=== PATIENT | female | born 1955 | race Caucasian/White ===

== ENCOUNTER 2018-09-07 12:33 | Emergency (ER) | payer OTHER ==
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
--- NOTE | 2018-09-07 14:12 | RAD REPORT ---
EXAM DESCRIPTION: RAD - Foot Left 3 View - 09/07/2018 2:01 pm CLINICAL HISTORY: foot pain, swelling COMPARISON: No comparisons FINDINGS: Small bony avulsion, age undetermined is noted along the dorsal aspect of the talus. Soft tissue swelling is seen along the forefoot. A prominent plantar calcaneal spur.
--- OUTSIDE RECORDS SUMMARY | 2018-09-07 14:48 | XMS REPORT | Clinical Summary ---
:1955 Author Organization [facility] Address [address] [place] [address] Care Team Providers Name Role Phone Antonino Saldivar MD Primary Care Provider Allergies No Known Allergies Medications Medication Sig Dispensed Refills Start Date End Date Status atorvastatin (LIPITOR) 40 MG tablet 0 10/30/2016 Active esomeprazole (NexIUM) 40 MG capsule 0 10/30/2016 Active escitalopram (LEXAPRO) 10 MG tablet 0 09/11/2016 Active letrozole (FEMARA) 2.5 mg chemo 0 08/21/2016 Active tablet NIFEdipine CC (ADALAT CC) 90 MG 24 0 10/30/2016 Active hr tablet Active Problems Problem Noted Date Primary osteoarthritis of right knee 11/03/2016 Internal derangement of right knee 11/03/2016 Chronic pain of both knees 11/03/2016 Family History Medical History Relation Name Comments Aortic aneurysm Father Cancer Mother Relation Name Status Comments Father Mother Social History Tobacco Use Types Packs/Day Years Used Date Light Tobacco Smoker Smokeless Tobacco: Never Used Alcohol Use Drinks/Week oz/Week Comments No Sex Assigned at Date Recorded Not on file Job Start Date Occupation Industry Not on file Not on file Not on file Travel History Travel Start Travel End No recent travel history available. Last Filed Vital Signs Not on file Plan of Treatment Health Maintenance Due Date Last Done Comments BREAST CANCER SCREENING 2006 COLON CANCER SCREENING 2006 SHINGLES VACCINES (#1) 2006 INFLUENZA VACCINE 11/08/2018 Results Not on fileafter 09/06/2017 Advance Directives Patient has advance care planning documents on file. For more information, please contact:Leonel [id number] [place] [address]
--- OUTSIDE RECORDS SUMMARY | 2018-09-07 14:48 | XMS REPORT | Continuity of Care Document ---
:1955 Author Organization Interface Problems Problem Status Onset Classification Date Comments Source Date Reported Malignant neoplasm of 09/06/2018 [facility] upper-inner quadrant 018 [facility] breast [place] C50.919 - MALIGNANT Active OPID NEOPLASM OF UNSP SIT 016 [facility] [address], RIGHT BREAST Active CANCER 016 [facility] [id number] N63 RIGHT BREAST Active MASS 015 [facility] Pure Active Diagnosis 03/23/2017 Comp Heart hypercholesterolemia Care Aneurysm of carotid Active Diagnosis 03/23/2017 Comp [facility] artery Care Benign essential Active Problem 03/23/2017 Comp Heart hypertension Care Heart murmur Active Diagnosis 03/23/2017 [facility] Abnormal EKG Active Problem 03/23/2017 [facility] Acid reflux [facility] BP+ - Hypertension Active Problem 09/06/2018 [place] Breast Active Problem 09/06/2018 right OPI mass<sup>1</sup> [facility] Hypercholesterolemia Resolved Problem 09/06/[address] [place] Medications Medication Details Route Status Patient Ordering Order Source Instructions Provider Date Morphine 2 mg, 1 mL, Inactive Route: IVP, 2015 [facility] Drug form: City INJ, Q5Min, Dosing Weight 81.818, kg, PRN Pain Score 4-6, Start date: 04/20/15 9:24:00, Duration: 5 doses or times, Stop date: Limited # of timesNotes: (Same as:MORPhine Sulfate) Naloxone 0.04 mg, 0.1 Inactive mL, Route: 2015 [facility] IVP, Drug [facility] form: INJ, Q2MIN, Dosing Weight 81.818, kg, PRN Narcotic Reversal, Start date: 04/20/15 9:24:00, Duration: 8 doses or times, Stop date: Limited # of timesNotes: Same as Narcan Flumazenil 0.2 mg, 2 mL, Inactive Route: IVP2015 [facility] Drug form: [facility] INJ, PRN, Dosing Weight 81.818, kg, PRN Benzodiazepine Reversal, Initial dose, Start date: 04/20/15 9:24:00, Duration: 30 day, Stop date: 05/20/15 9:23:00Notes: (Same as: Romazicon) Ondansetron 4 mg, 2 mL, Inactive Route: IVP2015 [facility] Drug form: [facility] INJ, ONCE, Dosing Weight 81.818, kg, PRN Nausea & Vomiting, Start date: 04/20/15 9:24:00Notes: (Same as: Zofran) MEDICATION WASTE Product Size: 4 mg Product Wasted: __0_ mg bupivacaine 20 mL, Route: Inactive liposome InFILtration(l 2015 [facility] ocal), Drug [place] Form: INJ, ONCALL, Start date: 04/20/15 9:00:00, Duration: 1 doses or times, Stop date: 04/21/15 0:00:00Notes: (Same as: Exparel) NOT FOR IV use Postoperative analgesia: Infiltration (local): Dose is based on surgical site and volume required to cover the area (in general, the maximum total dose is 266 mg). Bunionectomy: 7 mL into the tissues surrounding the osteotomy and 1 mL into the subcutaneous tissue of the surgical site (total dose=8 mL [106 mg]) Hemorrhoidecto my: 30 mL (20 mL vial diluted with 10 mL NS) divided and administered as 6 injections of 5 mL each (total dose=30 mL [266 mg]) lidocaine 1% 0.5 mL, Route: Inactive INTRADERM, 2015 [facility] Dosing Weight [facility] 81.818, kg, ONCALL, Start date: 04/20/15 9:00:00, Duration: 1 doses or times ceFAZolin 2 gm, 100 mL, Inactive Route: IVPB2015 [facility] Drug form: [facility] INJ, PRE OP, Start date: 04/20/15 9:00:00, Duration: 1 doses or times, Stop date: 04/21/15 0:00:00Notes: Same as: Ancef Calcium Chloride 1,000 mL, Inactive 0.0014 MEQ/ML / Rate: 25 2015 [facility] Potassium ml/hr, Infuse [facility] Chloride 0.004 over: 40 hr, MEQ/ML / Sodium Route: IV, Chloride 0.103 Dosing Weight MEQ/ML / Sodium 81.818 kg, Lactate 0.028 Total Volume: MEQ/ML Injectable 1,000, Start Solution date: 04/20/15 8:30:00, Duration: 30 day, Stop date: 05/20/15 8:29:00 Demerol HCl 10 mg, 0.2 mL, Inactive Route: IVP, 2014 [facility] Drug form: [place] INJ, Q5Min, Dosing Weight 81.818, kg, PRN See Nurse's Notes, Start date: 04/06/15 9:11:00, Duration: 5 doses or times, Stop date: Limited # of times, as needed for pain level 3-6Notes: (Same As: Demerol) Dilaudid 0.5 mg, 0.25 Inactive 04/06[facility] mL, Route: IV, 2014 [facility] Drug form: [place] INJ, Q10Min, Dosing Weight 81.818, kg, PRN See Nurse's Notes, Start date: 04/06/15 9:11:00, Duration: 4 doses or times, Stop date: Limited # of times, PRN for pain level 5-10Notes: (Same as: Dilaudid) Atropine 0.2 mg, 0.5 Inactive 04/06[facility] mL, Route: 2014 [facility] IVP Drug [facility] form: INJ, Q5Min, Dosing Weight 81.818, kg, PRN Other -See Comment, as needed; for symptomatic pulse rate Notes: MEDICATION WASTE Product Size: 0.4 mg Product Wasted: __0.2_ mg Naloxone 0.04 mg, 0.1 Inactive 04/06[facility] mL, Route: 2014 [facility] IVP, Drug [facility] form: INJ, Q2MIN, Dosing Weight 81.818, kg, PRN Narcotic Reversal, Start date: 04/06/15 9:11:00, Duration: 8 doses or times, Stop date: Limited # of timesNotes: Same as Narcan Flumazenil 0.2 mg, 2 mL, Inactive Route: IVP2014 [facility] Drug form: [place] INJ, PRN, Dosing Weight 81.818, kg, PRN Benzodiazepine Reversal, Initial dose, Start date: 04/06/15 9:11:00, Duration: 30 day, Stop date: 05/06/15 9:10:00Notes: (Same as: Romazicon) Morphine 2 mg, 1 mL, Inactive Route: IVP2014 [facility] Drug form: [place] INJ, Q5Min, Dosing Weight 81.818, kg, PRN Pain Score 4-6, Start date: 04/06/15 9:11:00, Duration: 5 doses or times, Stop date: Limited # of timesNotes: (Same as:MORPhine Sulfate) Midazolam 1 mg, 1 mL, Inactive Route: IVP2014 [facility] Drug form: [place] INJ, Q5Min, Dosing Weight 81.818, kg, PRN Anxiety, Start date: 04/06/15 9:11:00, Duration: 2 doses or times, Stop date: Limited # of timesNotes: (Same as: Versed) MEDICATION WASTE Product Size: 2 mg Product Wasted: _1__ mg Promethazine 6.25 mg, 0.25 Inactive mL, Route: 2014 [facility] IVPB, ONCE, [facility] Dosing Weight 81.818, kg, PRN Nausea & Vomiting, Start date: 04/06/15 9:11:00Notes: Do not give IV push. (Same as: Phenergan) Ondansetron 4 mg, 2 mL, Inactive Route: IVP2014 [facility] Drug form: [place] INJ, ONCE, Dosing Weight 81.818, kg, PRN Nausea & Vomiting, Start date: 04/06/15 9:11:00Notes: (Same as: Zofran) MEDICATION WASTE Product Size: 4 mg Product Wasted: _0__ mg Glycopyrrolate 0.2 mg, 1 mL, Inactive Route: IVP2014 [facility] Drug form: [place] INJ, Q5Min, Dosing Weight 81.818, kg, PRN Bradycardia, Start date: 04/06/15 9:11:00, Duration: 3 doses or times, Stop date: Limited # of timesNotes: (Same as: Alcides) Diphenhydramine 12.5 mg, 0.25 Inactive mL, Route: 2014 [facility] IVP, Drug [place] form: INJ, PRN, Dosing Weight 81.818, kg, PRN Itching, Start date: 04/06/15 9:11:00, Duration: 30 day, Stop date: 05/06/15 9:10:00Notes: (Same as: Adryl) Labetalol 10 mg, 2 mL, Inactive Route: IVP, 2014 [facility] Drug form: [place] INJ, Q5Min, Dosing Weight 81.818, kg, PRN Elevated BP, Start date: 04/06/15 9:11:00, Duration: 5 doses or times, Stop date: Limited # of timesNotes: (Same as: Normodyne, Trandate) Push over 2 minutes Give bolus over 2-3 minutes. bupivacaine 20 mL, Route: Inactive liposome InFILtration(l 2014 [facility] ocal), [facility] [place] Form: INJ, ONCALL, Start date: 04/06/15 9:00:00, Duration: 1 doses or times, Stop date: 04/07/15 0:00:00Notes: (Same as: Exparel) NOT FOR IV use Postoperative analgesia: Infiltration (local): Dose is based on surgical site and volume required to cover the area (in general, the maximum total dose is 266 mg). Bunionectomy: 7 mL into the tissues surrounding the osteotomy and 1 mL into the subcutaneous tissue of the surgical site (total dose=8 mL [106 mg]) Hemorrhoidecto my: 30 mL (20 mL vial diluted with 10 mL NS) divided and administered as 6 injections of 5 mL each (total dose=30 mL [266 mg]) lidocaine 1% 0.5 mL, Route: Inactive INTRADERM, 2014 [facility] Dosing Weight [facility] 81.818, kg, ONCALL, Start date: 04/06/15 9:00:00, Duration: 1 doses or times ceFAZolin 2 gm, 100 mL, Inactive Route: IVPB, 2014 [facility] Drug form: [place] INJ, PRE OP, Start date: 04/06/15 9:00:00, Duration: 1 doses or times, Stop date: 04/07/15 0:00:00Notes: Same as: Ancef Cefazolin 2 gm, Route: Inactive IVPB, ONCE, 2014 [facility] Dosing Weight [facility] 81.818, kg, Start date: 04/06/15 8:41:00, Stop date: 04/06/15 8:41:00 Calcium Chloride 1,000 mL, Inactive 0.0014 MEQ/ML / Rate: 25 2014 [facility] Potassium ml/hr, Infuse [facility] Chloride 0.004 over: 40 hr, MEQ/ML / Sodium Route: IV, Chloride 0.103 Dosing Weight MEQ/ML / Sodium 81.818 kg, Lactate 0.028 Total Volume: MEQ/ML Injectable 1,000, Start Solution date: 04/06/15 8:41:00, Duration: 30 day, Stop date: 05/06/15 8:40:00 Hydrochlorothiazi =1 tab, PO, Active de Daily, 0 2014 [facility] Refill(s) [facility] Lipitor =1 tab, PO, Active Bedtime, 0 2014 [facility] Refill(s) [facility] Esomeprazole 20 20 mg=1 cap, Active MG Enteric Coated PO, Daily, 0 2014 [facility] Capsule [Nexium] Refill(s) [facility] Nifedipine 10 MG 10 mg=1 cap, Active Oral Capsule PO, Daily, 0 2014 [facility] Refill(s) [facility] letrozole 1 tab(s) orally Active 2.5 mg orally [facility]av[place] Comp once a day [facility] escitalopram 1 tab(s) orally Active 10 mg orally [place] Comp once a day [facility] Nexium 1 cap(s) orally Active 40 mg orally [facility] Comp once a day [facility] atorvastatin 1 tab(s) orally Active 40 mg orally [facility] Comp once a day [facility] metformin 1 tab(s) orally Active 500 mg orally [facility] Comp once a day [facility] nifedipine 1 tab(s) orally Active 90 mg orally [place] Comp once a day [facility] Allergies, Adverse Reactions, Alerts Substance Category Reaction Severity Reaction Status Date Comments Source type Reported N.K.D.A. Adverse Info Not Adverse Active 11/21/201 Comp Reaction Available Reaction 7 [facility] No Known Assertion Drug OPID Medication allergy [facility] Immunizations Immunization Date Given Site Status Last Updated Comments Source Results Order Name Results Value Reference Date Interpretation Comments Source Range Breast Breast Mammo 02/16 - OPID Mammo Diag Diag SIVAN w - [facility] SIVAN w alesia alesia incl City incl CAD MA CAD MA Read by: Alma Abdul MD Dictated Date/time: 02/16/18 10:33 BILATERAL DIGITAL DIAGNOSTIC MAMMOGRAM 3D/2D WITH CAD: 02/16/2018 Electronically Signed by: Alma Abdul MD 02/16/18 10 :33 FINAL REPORT CLINICAL: Malignant Neoplasm/C50.211. Current study was evaluated with a Computer Aided Detection (CAD) system. COMPARISON:Comparison is made to exams dated: 02/10/2017 mammogram and 02/08 mammogram - [facility]. TECHNIQUE: Digital Breast Tomosynthesis was performed and utilized for Interpretation. Current study was also evaluated with a Computer Aided Detection (CAD) system. FINDINGS: There are scattered fibroglandular densities in both breasts. There are benign calcifications and cysts in both breasts. There also are post operative findings in the right breast. No significant masses, calcifications, or other findings are seen in either breast. There has been no significant interval change. IMPRESSION: BENIGN RECOMMENDATION:There is no mammographic evidence of malignancy. A follow- up mammogram in 12 months is recommended.(02/16/2019) This exam was interpreted at [id number] for [facility] [place]. Professional services are provided by the [facility]. Alma macdonald/penrad:02/16/2018 10:33:49 Education Adviser(s): Reshma Orellana, [facility] letter sent: BI-RADS 1/2 Mammogram BI-RADS: 2 Benign Breast Breast Mammo 02/10 - OPID Mammo Diag Diag SIVAN - [facility] SIVAN incl incl CAD MA City CAD MA Read by: Obed Walls MD Dictated Date/time: 02/10/17 13:00 BILATERAL DIGITAL DIAGNOSTIC MAMMOGRAM WITH CAD: 02/10/2017 Electronically Signed by: Obed Walls MD 02/10/17 13 :00 FINAL REPORT CLINICAL: History of breast cancer status post lumpectomy and radiation. Current study was evaluated with a Computer Aided Detection (CAD) system. COMPARISON:Comparison is made to exam dated: 02/09/2016 mammogram - [facility]. TECHNIQUE: Mammographic views were obtained using digital acquisition. Current study was also evaluated with a Computer Aided Detection (CAD) system. There are scattered fibroglandular densities in both breasts. FINDINGS: There are post operative findings in the right breast. No significant masses, calcifications, or other findings are seen in either breast. There has been no significant interval change. IMPRESSION: BENIGN RECOMMENDATION:There is no mammographic evidence of malignancy. A 1 year screening mammogram is recommended.(02/11/2018) This exam was interpreted at [id number] for [facility] [place]. Dr. Obed Walls M.D. eoc/penrad:02/10/2017 13:00:05 copy to: Mary Cruz copy to: Efren Garnica M.D., ph: [phone] copy to: Antonino Saldivar MD, ph: [phone] Education Adviser(s): Delfina Alexis, [facility] letter sent: BI-RADS 1/2 Mammogram BI-RADS: 2 Benign Digital Digital - DIGITAL MAMMO DX [facility] 02/08 - OPID Mammo DX Mammo DX - [facility] BILATERAL DIGITAL DIAGNOSTIC MAMMOGRAM WITH CAD: 02/09/2016 [facility] CLINICAL: Right Breast Cancer. 60 year old asymptomatic patient with personal history of right breast cancer status post breast conservation and radiation therapy in March 2015. Family history of breast cancer diagnosed in mother at age 55. Read by: Angela Maya MD Dictated Date/time: 02/09/16 11:31 Electronically Signed by: Angela Maya MD 02/09/16 11:31 FINAL REPORT Current study was evaluated with a Computer Aided Detection (CAD) system. No prior exams were available for comparison. There are scattered fibroglandular densities in both breasts. There are benign appearing calcifications in both breasts. There also are post operative findings in the right breast and right axilla. No significant masses, calcifications, or other findings are seen in either breast. IMPRESSION: BENIGN There is no mammographic evidence of new or recurrent malignancy. A 1 year screening mammogram is recommended. Findings and recommendations were discussed with the patient at the time of the examination. Professional services are provided by the [facility]. Angela Maya M.D. rp/:02/09/2016 11:31:15 Education Adviser: Petra KABA)(Pat), [facility] This exam was dictated and interpreted by [id number] for [facility] [place]. letter sent: Normal exam Mammogram BI-RADS: 2 Benign Sentinal Sentinal SENTINEL LYMPH NODE INJECTION ONLY. 04/20 - Node Node /2015 - [facility] injection injection [facility] REASON FOR EXAMINATION: Breast cancer. Read by: Brandon Sevilla MD Dictated Date/time: 04/20/15 14:51 Electronically Signed by: Brandon Sevilla MD 04/20/15 14:51 FINAL REPORT COMPARISON: None. TECHNIQUE: The procedure was discussed with the patient. Betadine was used to cleanse the area. 0.4 mCi of technetium 99m filtered sulfur colloid was injected in the right breast at the 6:00 periareolar region. The area was subsequently massaged. FINDINGS: No images were requested by the ordering physician. The patient was sent to surgery suite. IMPRESSION: Status post injection for intra-op sentinel lymph node identification. US Breast US Breast - US BREAST COMPLETE SIVAN MA 04/16 - OPID Complete Complete - [facility] ULTRASOUND OF BOTH BREASTS- MELVINA BASIN: 04/16/2015 [facility] CLINICAL: 59 year old female recently diagnosed with right breast cancer ( ILC) after an excisional biopsy who presents for screening sonography of both breasts. Read by: Obed Walls MD Dictated Date/time: 04/16/15 14:53 Electronically Signed by: Obed Walls MD 04/16/15 14:53 FINAL REPORT Comparison is made to exams dated: 02/23/2015 ultrasound - [facility] and 01/30/2015 mammogram - [facility]. Real-time ultrasound was performed, including evaluation of the right- sided melvina basins, the left axilla, and the subareolar regions/all four quadrants of both breasts. A few benign dilated ducts and subcentimeter cysts are present in both breasts, and a benign seroma is noted in the right upper outer quadrant. No suspicious cystic or solid abnormality is seen, and th ere is no evidence of adenopathy on either side. IMPRESSION: BENIGN No sonographic evidence of residual or recurrent malignancy. Surgical consultation is already in progress. SUMMARY: I informed the patient of the results and their significance at the completion of today's examination. Dr. Obed Walls M.D. eoc/:04/16/2015 14:53:40 Education Adviser: Babita Romano, [facility] This exam was dictated and interpreted by [id number] for [facility]. letter sent: Normal exam Ultrasound BI-RADS: 2 Benign Chest 2 Chest 2 EXAM: 04/15 - OPID views DX views DX /2015 - [facility] Two view chest. [facility] Read by: Gene Herrera MD Dictated Date/time: 04/15/15 16:00 INDICATION: Electronically Signed by: Gene Herrera MD 04/15/15 16:02 FINAL REPORT Malignant neoplasm of unspecified female breast. COMPARISON: Chest x-ray: None. FINDINGS: Cardiac silhouette: Unremarkable. Adelina: Unremarkable. Lobar consolidation: None. Pleural effusion: None. Pneumothorax: None. Other: None. Bones: Kyphosis. Other: None. IMPRESSION: 1. No acute cardiopulmonary process. CHEM PANEL POC Glucose 101 mg/dL 70 - 99 04/06 [facility] CHEM PANEL POC 3.7 meq/L 3.5 - 5.1 04/06 Potassium /2014 [facility] CHEM PANEL POC Sodium 142 meq/L 135 - 145 04/06 [facility] CHEM PANEL POC 14.3 g/dL 12.0 - 04/06 Hemoglobin 16.0 [facility] CHEM PANEL POC 42.0 % 36.0 - 04/06 Hematocrit 48.0 [facility] Breast Breast - BREAST SPECIMEN SURGERY 04/06 - specimen specimen /2014 - [facility] surgery SPECIMEN RIGHT BREAST: 04/06/2015 [facility] CLINICAL: Suspicious right breast mass at 10:00. Read by: Obed Walls MD Dictated Date/time: 04/06/15 10:43 Electronically Signed by: Obed Walls MD 04/06/15 10:43 FINAL REPORT Correlation is made to exam dated: 04/06/2015 localization - [facility]. A surgical biopsy specimen was imaged for the mass located in the right breast at [address] o'clock posterio r depth. Dr. Cruz was notified of the results in the operating room. IMPRESSION: SPECIMEN The imaged specimen includes the lesion and the distal portion of the localization wire. Dr. Obed Walls M.D. eoc/:04/06/2015 10:43:09 Education Adviser: Sarahi Spence, [facility] This exam was dictated and interpreted by [id number] for [facility]. US Guided US Guided - US GUIDED NEEDLE LOCALIZATION UNI MA/R 04/06 - OP[facility]TR[facility] GUIDED WIRE LOCALIZATION RIGHT BREAST WITH POST DIGITAL MAMMOGRAPHIC AND ULTRASOUND IMAGIN04/06/2015 [facility] Uni MA Uni MA CLINICAL: Suspicious right breast mass at 10:00. Read by: Obed Walls MD Dictated Date/time: 04/06/15 08:28 Electronically Signed by: Obed Walls MD 04/06/15 08:28 FINAL REPORT PATIENT CONSENT: Informed consent was obtained for preoperative hookwire needle localization of the targeted lesion following a detailed discussion of the risk, alternatives, benefits and complications. A formal timeout was performed by the team prior to the procedure to verify the patient's identity and lesion site. Correlation is made to exams dated: 02/23/2015 ultrasound - [facility] and 01/30/2015 mammogram - [facility]. A wire localization using ultrasound guidance was performed for the mass located in the right breast at 10 o'clock posterior depth. The skin was prepped in the usual manner. Local anesthetic was administered to the access site. The localization was approached from the lateral aspect. A wire was inserted into the targeted area under ultrasound guidance. Post placement digital mammographic and ultrasound imaging was obtained. IMPRESSION: WIRE LOCALIZATION Wire localization for the mass in the right breast at 10 o'clock posterior depth was successful. Dr. Obed Walls M.D. eoc/:04/06/2015 08:28:51 Education Adviser: Babita Romano, [facility] This exam was dictated and interpreted by [id number] for [facility]. Vital Signs Vital Sign Value Date Comments Source Diastolic (mm Hg) 88 02/28/2017 [facility] Systolic (mm Hg) 130 02/28/2017 [facility] Weight 187.6 02/28/2017 [facility] Height 67 02/28/2017 [facility] Systolic (mm Hg) 130 04/20/[address] [facility] Diastolic (mm Hg) 74 04/20/[address] [facility] Respitory Rate 12 04/20/[address] [facility] Respitory Rate 15 04/20/[address] [facility] Systolic (mm Hg) 133 04/20/[address] [facility] Diastolic (mm Hg) 69 04/20/[address] [facility] Respitory Rate 16 04/20/[address] [facility] Systolic (mm Hg) 134 04/20/[address] [facility] Diastolic (mm Hg) 73 04/20/[address] [facility] Heart Rate 75 04/20/[address] [facility] Height 170.18 cm 04/17/[address] [facility] Weight 81.818 04/17/[address] [facility] BMI Calculated 28.25 04/17/[address] [facility] Respitory Rate 12 04/06/[address] [facility] Systolic (mm Hg) 130 04/06/[address] [facility] [facility] [place] Diastolic (mm Hg) 77 04/06/2015 [facility] [place] Systolic (mm Hg) 135 04/06/[address] [facility] [place] Diastolic (mm Hg) 75 04/06/[address] [facility] [place] Respitory Rate 15 04/06/[address] [facility] [place] Respitory Rate 12 04/06/[address] [facility] [place] Systolic (mm Hg) 126 04/06/[address] [facility] [place] Diastolic (mm Hg) 76 04/06/[address] [facility] [place] Heart Rate 83 04/06/[address] [facility] [place] BMI Calculated 28.25 04/01/[address] [facility] [place] Weight 81.818 04/01/[address] [facility] [place] Height 170.18 cm 04/01/[address] [facility] [place] Encounters Location Location Encounter Encounter Reason Attending ADM DC Status Source Details Type Number For Provider Date Date Visit [facility]patient [id number] Mary Angeles 04/06 04/07 [facility] Out[facility] Anthony /2014 [facility] Outpatient [id number] Mary Angelse 04/06 04/07 [facility] Outpatient Anthony /2014 [facility] OBS Day [id number] Mary Angeles 04/06 04/06 [facility] Anthony /2014 [facility] Outpt Diag [id number] Non 04/15 04/16 [facility] Outpatient Services Physician /2015 [facility] Outpatient [id number] Mary Angeles 04/16 04/17 [facility] Outpatient Anthony /2015 [facility] OBS Day [id number] Mary Angeles 04/20 04/20 [facility] Anthony /2015 [facility] Outpatient [id number] Lobo 02/08 02/09 [facility] Outpatient Kamari /2015 [facility] Outpatient [id number] Yue 02/10 02/11 [facility] Outpatient Noé /2016 [facility] Outpatient [id number] Yue 02/16 02/17 [facility] Outpatient [place] /2017 [facility] Procedures Procedure Code Date Perfomer Comments Source Biopsy of breast [id number] [place] H/O: hyste[place] [id number] [place] Biopsy of breast [id number] [facility] [place] H/O: hysterectomy [id number] [facility] [place]
--- OUTSIDE RECORDS SUMMARY | 2018-09-07 14:49 | XMS REPORT | Summary of Care ---
:1955 Author Organization [facility] Outpatient Imaging [facility] Address [address] [place] [address]- Encounter HQ Sohail_solomon(FIN) [id number] Date(s): 02/16/18 - 02/16/18 [facility] Outpatient Imaging [address] [address]- [phone] Encounter Diagnosis Malignant neoplasm of upper-inner quadrant of right female breast (Final) - Discharge Disposition: Home or Self Care Attending Physician: Yue Umanzor MD Referring Physician: Yue Umanzor MD Vital Signs No data available for this section Problem List Condition Effective Dates Status Health Status Informant Acid reflux(Confirmed) Active BP+ - Hypertension(Confirmed) Active Breast mass(Confirmed)1 Active Hypercholesterolemia(Confirmed) Resolved 1right Allergies, Adverse Reactions, Alerts No Known Medication Allergies Medications No data available for this section Results No data available for this section Immunizations No data available for this section Procedures Procedure Date Related Diagnosis Body Site Status Biopsy of breast Completed H/O: hysterectomy Completed Social History Social History Type Response Alcohol Current, Type Wine. Smoking Status Current every day smoker; Type: Cigarettes; Lives with someone who smokes; Cigarette Smoking Last 365 Days Yes; Reg Smoking Cessation Counseling Yes entered on: 04/17/15 Assessment and Plan No data available for this section
--- OUTSIDE RECORDS SUMMARY | 2018-09-07 14:49 | XMS REPORT ---
:1955 Author Organization e[employer] Care Team Providers Name Role Phone Bulmaro Trotter Provider Role Unavailable Allergies No Known Allergies Problems Problem Type Condition Code Onset Dates Condition Status Problem Pure hypercholesterolemia E78.00 Active Problem Aneurysm of carotid artery I72.0 Active Problem Benign essential hypertension I10 Active Medications No Known Medications Results No Known Results Summary Purpose eClinicalWorks Submission
--- OUTSIDE RECORDS SUMMARY | 2018-09-07 14:49 | XMS REPORT | Summary of Care ---
:1955 Author Organization [facility] Address [address] [place] [address]- Encounter HQ Art(KAI) [id number] Date(s): 04/20/15 - 04/20/[address] [address]- Discharge Disposition: Home Attending Physician: Mary Cruz MD Referring Physician: Mary Cruz MD Vital Signs Most recent to oldest 1 2 3 [Reference Range]: Height 170.18 cm (04/17/15 5:22 PM) Blood Pressure [90-140/60-90 130/74 mmHg 133/69 mmHg 134/73 mmHg mmHg] (04/20/15 11:20 AM) (04/20/15 11:10 AM) (04/20/15 10:55 AM) Respiratory Rate [14-20 12 BRMIN 15 BRMIN 16 BRMIN BRMIN] *LOW* (04/20/15 11:10 AM) (04/20/15 10:55 AM) (04/20/15 11:20 AM) Peripheral Pulse Rate 75 bpm [60-100 bpm] (04/20/15 8:51 AM) Weight 81.818 kg (04/17/15 5:22 PM) Body Mass Index 28.25 m2 (04/17/15 5:22 PM) Problem List Condition Effective Dates Status Health Status Informant Acid reflux(Confirmed) Active BP+ - Hypertension(Confirmed) Active Breast mass(Confirmed)1 Active Hypercholesterolemia(Confirmed) Resolved 1right Allergies, Adverse Reactions, Alerts Substance Reaction Severity Status NKDA Active Medications bupivacaine liposome 20 mL, Route: InFILtration(local), Drug Form: INJ, ONCALL, Start date: 04/20/15 9:00:00, Duration: 1doses or times, Stop date: 04/21/15 0:00:00 Notes: (Same as: Exparel) NOT FOR IV use Postoperative analgesia: Infiltration (local): Dose is based on surgical site and volume required to cover the area (in general, the maximum total dose is 266 mg).Bunionectomy: 7 mL into the tissues surrounding the osteotomy and 1 mL into the subcutaneous tissue of the surgical site (total dose=8 mL [106 mg])Hemorrhoidectomy: 30 mL ( 20 mL vial diluted with 10 mL NS) divided and administered as 6 injections of 5 mL each (total dose=30 mL [266 mg]) Start Date: 04/20/15 Stop Date: 04/20/15 Status: DiscontinuedceFAZolin 2 gm, 100 mL, Route: IVPB, Drug form: INJ, PRE OP, Start date: 04/20/15 9:00:00 , Duration: 1 doses or times, Stop date: 04/21/15 0:00:00 Notes: Same as: Ancef Start Date: 04/20/15 Stop Date: 04/20/15 Status: Discontinuedflumazenil 0.2 mg, 2 mL, Route: IVP, Drug form: INJ, PRN, Dosing Weight 81.818, kg, PRN Benzodiazepine Reversal, Initial dose, Start date: 04/20/15 9:24:00, Duration: 30 day, Stop date: 05/20/15 9:23:00 Notes: (Same as: Romazicon) Start Date: 04/20/15 Stop Date: 04/20/15 Status: DiscontinuedLactated Ringers Injection IV 1,000 mL 1,000 mL, Rate: 25 ml/hr, Infuse over: 40 hr, Route: IV, Dosing Weight 81.818 kg , Total Volume: 1,000, Start date: 04/20/15 8:30:00, Duration: 30 day, Stop date : 05/20/15 8:29:00 Start Date: 04/20/15 Stop Date: 04/20/15 Status: Discontinuedlidocaine 1% 0.5 mL, Route: INTRADERM, Dosing Weight 81.818, kg, ONCALL, Start date: 9:00:00, Duration: 1 doses or times Start Date: 04/20/15 Stop Date: 04/20/15 Status: Completedmorphine Sulfate 2 mg, 1 mL, Route: IVP, Drug form: INJ, Q5Min, Dosing Weight 81.818, kg, PRN Pain Score 4-6, Start date: 04/20/15 9:24:00, Duration: 5 doses or times, Stop date: Limited # of times Notes: (Same as:MORPhine Sulfate) Start Date: 04/20/15 Stop Date: 04/20/15 Status: Discontinuednaloxone 0.04 mg, 0.1 mL, Route: IVP, Drug form: INJ, Q2MIN, Dosing Weight 81.818, kg, PRN Narcotic Reversal,Start date: 04/20/15 9:24:00, Duration: 8 doses or times, Stop date: Limited # of times Notes: Same as Narcan Start Date: 04/20/15 Stop Date: 04/20/15 Status: Discontinuedondansetron 4 mg, 2 mL, Route: IVP, Drug form: INJ, ONCE, Dosing Weight 81.818, kg, PRN Nausea & Vomiting, Start date: 04/20/15 9:24:00 Notes: (Same as: Claribel) MEDICATION WASTE Product Size: 4 mgProduct Wasted: __0_ mg Start Date: 04/20/15 Stop Date: 04/20/15 Status: Discontinued Results No data available for this section Immunizations No data available for this section Procedures Procedure Date Related Diagnosis Body Site Biopsy of breast H/O: hysterectomy Social History Social History Type Response Alcohol Current, Type Wine. Smoking Status Current every day smoker; Type: Cigarettes; Lives with someone who smokes; Cigarette Smoking Last 365 Days Yes; Reg Smoking Cessation Counseling Yes Assessment and Plan No data available for this section
--- OUTSIDE RECORDS SUMMARY | 2018-09-07 14:49 | XMS REPORT | Summary of Care ---
:1955 Author Organization [facility] Outpatient Imaging [facility] Address [address] [place] [address]- Encounter HQ Encntr_aliizabella(FIN) [id number] Date(s): 02/10/17 - 02/10/17 [facility] Outpatient [address] [address]- [phone] Discharge Disposition: Home or Self Care Attending Physician: Yue Umanzor MD Vital Signs No data available for this section Problem List Condition Effective Dates Status Health Status Informant Acid reflux(Confirmed) Active BP+ - Hypertension(Confirmed) Active Breast mass(Confirmed)1 Active Hypercholesterolemia(Confirmed) Resolved 1right Allergies, Adverse Reactions, Alerts Substance Reaction Severity Status NKDA Active Medications No data available for this section [...]
--- OUTSIDE RECORDS SUMMARY | 2018-09-07 14:49 | XMS REPORT | Summary of Care ---
:1955 Author Organization [facility] Outpatient Imaging [facility] Address [address] [place] [address]- Encounter HQ Susanr_solomon(FIN) [id number] Date(s): 04/06/15 - 04/06/15 [facility] Outpatient [address] [place] [address] [address] [phone] Discharge Disposition: Home Attending Physician: Mary Cruz MD Vital Signs No data available for [...] Procedures Procedure Date Related Diagnosis Body Site H/O: hysterectomy Social History Social History Type Response Alcohol Current, Type Wine. Smoking Status Current every day smoker; Type: Cigarettes; Lives with someone who smokes; Cigarette Smoking Last 365 Days Yes; Reg Smoking Cessation Counseling Yes Assessment and Plan No data available for this section
--- OUTSIDE RECORDS SUMMARY | 2018-09-07 14:49 | XMS REPORT ---
:1955 Author Organization eClinicalWorks Care Team Providers Name Role Phone Bulmaro Trotter Provider Role Unavailable Allergies, Adverse Reactions, Alerts Substance Reaction Event Type N.K.D.A. Info Not Available Non Drug Allergy Problems Problem Type Condition Code Onset Dates Condition Status Assessment Aneurysm of carotid artery I72.0 Active Assessment Pure hypercholesterolemia E78.00 Active Assessment Heart murmur R01.1 Active Problem Abnormal EKG R94.31 Active Problem Aneurysm of carotid artery I72.0 Active Problem Benign essential hypertension I10 Active Assessment Abnormal EKG R94.31 Active Assessment Benign essential hypertension I10 Active Problem Heart murmur R01.1 Active Problem Pure hypercholesterolemia E78.00 Active Medications Medication Code System Code Instructions Start End Date Status Dosage Date letrozole [facility] 79553005428 2.5 mg orally Active 1 tab(s) once a day escitalopram [facility] 92206358684 10 mg orally Active 1 tab(s) once a day Nexium [facility] 53564412342 40 mg orally Active 1 cap(s) once a day atorvastatin [facility] 20404248744 40 mg orally Active 1 tab(s) once a day metformin [facility] 97939978818 500 mg orally Active 1 tab(s) once a day nifedipine [facility] 65521686908 90 mg orally Active 1 tab(s) once a day Vital Signs Date/Time: Feb 28, 2017 Blood Pressure Diastolic 88 mm Hg Blood Pressure Systolic 130 mm Hg Weight 187.6 lbs BMI 29.38 Index Height 67 in Results No Known Results Summary Purpose eClinicalWorks Submission
--- OUTSIDE RECORDS SUMMARY | 2018-09-07 14:49 | XMS REPORT | Summary of Care ---
:1955 Author Organization [facility] Address [address] [place] [address]- Encounter SILVERIO Cordova(KAI) [id number] Date(s): 04/06/15 - 04/06/[address] [address]- Discharge Disposition: Home Attending Physician: Mary Cruz MD Referring Physician: Mary Cruz MD Vital Signs Most recent to oldest 1 2 3 [Reference Range]: Height 170.18 cm (04/01/15 5:59 PM) Blood Pressure 130/77 mmHg 135/75 mmHg 126/76 mmHg [90-140/60-90 mmHg] (04/06/15 11:46 AM) (04/06/15 11:35 AM) (04/06/15 11:20 AM) Respiratory Rate [14-20 12 BRMIN 15 BRMIN 12 BRMIN BRMIN] *LOW* (04/06/15 11:35 AM) *LOW* (04/06/15 11:46 AM) (04/06/15 11:20 AM) Peripheral Pulse Rate 83 bpm [60-100 bpm] (04/06/15 8:51 AM) Weight 81.818 kg (04/01/15 5:59 PM) Body Mass Index 28.25 m2 (04/01/15 5:59 PM) Problem List Condition Effective Dates Status Health Status Informant Acid reflux(Confirmed) Active BP+ - Hypertension(Confirmed) Active Breast mass(Confirmed)1 Active Hypercholesterolemia(Confirmed) Resolved 1right Allergies, Adverse Reactions, Alerts Substance Reaction Severity Status NKDA Active Medications atropine 0.2 mg, 0.5 mL, Route: IVP, Drug form: INJ, Q5Min, Dosing Weight 81.818, kg, PRN Other -See Comment,as needed; for symptomatic pulse rate < 80% of mean 50 BPM, Start date: 04/06/15 9:11:00, Duration: 30 day, Stop date: 05/06/15 9:10 :00 Notes: MEDICATION WASTE Product Size: 0.4 mgProduct Wasted: __0.2_ mg Start Date: 04/06/15 Stop Date: 04/06/15 Status: Discontinuedbupivacaine liposome 20 mL, Route: InFILtration(local), Drug Form: INJ, ONCALL, Start date: 04/06/15 9:00:00, Duration: 1doses or times, Stop date: 04/07/15 0:00:00 Notes: (Same as: Exparel) NOT FOR [...] (total dose=30 mL [266 mg]) Start Date: 04/06/15 Stop Date: 04/06/15 Status: DiscontinuedceFAZolin 2 gm, Route: IVPB, ONCE, Dosing Weight 81.818, kg, Start date: 04/06/15 8:41:00 , Stop date: 158:41:00 Start Date: 04/06/15 Stop Date: 04/06/15 Status: DeletedceFAZolin 2 gm, 100 mL, Route: IVPB, Drug form: INJ, PRE OP, Start date: 04/06/15 9:00:00 , Duration: 1 doses or times, Stop date: 04/07/15 0:00:00 Notes: Same as: Ancef Start Date: 04/06/15 Stop Date: 04/06/15 Status: DiscontinuedDemerol HCl 10 mg, 0.2 mL, Route: IVP, Drug form: INJ, Q5Min, Dosing Weight 81.818, kg, PRN See Nurse's Notes, Start date: 04/06/15 9:11:00, Duration: 5 doses or times, Stop date: Limited # of times, as needed forpain level 3-6 Notes: (Same As: Demerol) Start Date: 04/06/15 Stop Date: 04/06/15 Status: DiscontinuedDilaudid 0.5 mg, 0.25 mL, Route: IV, Drug form: INJ, Q10Min, Dosing Weight 81.818, kg, PRN See Nurse's Notes,Start date: 04/06/15 9:11:00, Duration: 4 doses or times, Stop date: Limited # of times, PRN for pain level 5-10 Notes: (Same as: Dilaudid) Start Date: 04/06/15 Stop Date: 04/06/15 Status: DiscontinueddiphenhydrAMINE 12.5 mg, 0.25 mL, Route: IVP, Drug form: INJ, PRN, Dosing Weight 81.818, kg, PRN Itching, Start date: 04/06/15 9:11:00, Duration: 30 day, Stop date: 9:10:00 Notes: (Same as: Benadryl) Start Date: 04/06/15 Stop Date: 04/06/15 Status: Discontinuedflumazenil 0.2 mg, 2 mL, Route: IVP, Drug form: INJ, PRN, Dosing Weight 81.818, kg, PRN Benzodiazepine Reversal, Initial dose, Start date: 04/06/15 9:11:00, Duration: 30 day, Stop date: 05/06/15 9:10:00 Notes: (Same as: Romazicon) Start Date: 04/06/15 Stop Date: 04/06/15 Status: Discontinuedglycopyrrolate 0.2 mg, 1 mL, Route: IVP, Drug form: INJ, Q5Min, Dosing Weight 81.818, kg, PRN Bradycardia, Start date: 04/06/15 9:11:00, Duration: 3 doses or times, Stop date : Limited # of times Notes: (Same as: Alcides) Start Date: 04/06/15 Stop Date: 04/06/15 Status: Discontinuedhydrochlorothiazide =1 tab, PO, Daily, 0 Refill(s) Start Date: 04/01/15 Status: Orderedlabetalol 10 mg, 2 mL, Route: IVP, Drug form: INJ, Q5Min, Dosing Weight 81.818, kg, PRN Elevated BP, Start date: 04/06/15 9:11:00, Duration: 5 doses or times, Stop date : Limited # of times Notes: (Same as: Normodyne, Trandate)Push over 2 minutes Give bolus over 2-3 minutes. Start Date: 04/06/15 Stop Date: 04/06/15 Status: DiscontinuedLactated Ringers Injection IV 1,000 mL 1,000 mL, Rate: 25 ml/hr, Infuse over: 40 hr, Route: IV, Dosing Weight 81.818 kg , Total Volume: 1,000, Start date: 04/06/15 8:41:00, Duration: 30 day, Stop date : 05/06/15 8:40:00 Start Date: 04/06/15 Stop Date: 04/06/15 Status: Discontinuedlidocaine 1% 0.5 mL, Route: INTRADERM, Dosing Weight 81.818, kg, ONCALL, Start date: 9:00:00, Duration: 1 doses or times Start Date: 04/06/15 Stop Date: 04/06/15 Status: CompletedLipitor =1 tab, PO, Bedtime, 0 Refill(s) Start Date: 04/01/15 Status: Orderedmidazolam 1 mg, 1 mL, Route: IVP, Drug form: INJ, Q5Min, Dosing Weight 81.818, kg, PRN Anxiety, Start date: 04/06/15 9:11:00, Duration: 2 doses or times, Stop date: Limited # of times Notes: (Same as: Versed) MEDICATION WASTE Product Size: 2 mgProduct Wasted: _1__ mg Start Date: 04/06/15 Stop Date: 04/06/15 Status: Discontinuedmorphine Sulfate 2 mg, 1 mL, Route: IVP, Drug form: INJ, Q5Min, Dosing Weight 81.818, kg, PRN Pain Score 4-6, Start date: 04/06/15 9:11:00, Duration: 5 doses or times, Stop date: Limited # of times Notes: (Same as:MORPhine Sulfate) Start Date: 04/06/15 Stop Date: 04/06/15 Status: Discontinuednaloxone 0.04 mg, 0.1 mL, Route: IVP, Drug form: INJ, Q2MIN, Dosing Weight 81.818, kg, PRN Narcotic Reversal,Start date: 04/06/15 9:11:00, Duration: 8 doses or times, Stop date: Limited # of times Notes: Same as Narcan Start Date: 04/06/15 Stop Date: 04/06/15 Status: Discontinuednaloxone 0.1 mg, 0.25 mL, Route: SUB-Q, Drug form: INJ, Q6H, Dosing Weight 81.818, kg, PRN Itching, Start date: 04/06/15 9:11:00, Duration: 30 day, Stop date: 9:10:00 Notes: Same as Narcan Start Date: 04/06/15 Stop Date: 04/06/15 Status: DiscontinuedNexIUM 20 mg oral delayed release capsule 20 mg=1 cap, PO, Daily, 0 Refill(s) Start Date: 04/01/15 Status: OrderedNIFEdipine 10 mg oral capsule 10 mg=1 cap, PO, Daily, 0 Refill(s) Start Date: 04/01/15 Status: Orderedondansetron 4 mg, 2 mL, Route: IVP, Drug form: INJ, ONCE, Dosing Weight 81.818, kg, PRN Nausea & Vomiting, Start date: 04/06/15 9:11:00 Notes: (Same as: Zofran) MEDICATION WASTE Product Size: 4 mgProduct Wasted: _0__ mg Start Date: 04/06/15 Stop Date: 04/06/15 Status: Completedpromethazine + Sodium Chloride 0.9% IV 50 mL 6.25 mg, 0.25 mL, Route: IVPB, ONCE, Dosing Weight 81.818, kg, PRN Nausea & Vomiting, Start date: 04/06/15 9:11:00 Notes: Do not give IV push. (Same as: Phenergan) Start Date: 04/06/15 Stop Date: 04/06/15 Status: Discontinued Results ELECTROLYTES Most recent to oldest [Reference Range]: 1 POC Sodium [135-145 mEq/L] 142 mEq/L (04/06/15 9:01 AM) POC Potassium [3.5-5.1 mEq/L] 3.7 mEq/L (04/06/15 9:01 AM) CHEM PANEL Most recent to oldest [Reference Range]: 1 POC Glucose [70-99 mg/dL] 101 mg/dL *HI* (04/06/15 9:01 AM) HEMATOLOGY Most recent to oldest [Reference Range]: 1 POC Hemoglobin [12.0-16.0 g/dL] 14.3 g/dL (04/06/15 9:01 AM) POC Hematocrit [36.0-48.0 %] 42.0 % (04/06/15 9:01 AM) Immunizations No data available for this section [...]
--- OUTSIDE RECORDS SUMMARY | 2018-09-07 14:49 | XMS REPORT | Summary of Care ---
:1955 Author Organization [facility] Outpatient Imaging [facility] Address [address] [place] [address]- Encounter HQ Susanr_solomon(FIN) [id number] Date(s): 04/06/15 - 04/06/15 [facility] Outpatient [address] [address]- [phone] Discharge Disposition: Home Attending Physician: Mary Cruz [...]
--- OUTSIDE RECORDS SUMMARY | 2018-09-07 14:50 | XMS REPORT | Summary of Care ---
:1955 Author Organization [facility] Outpatient Imaging [facility] Address [address] [place] [address]- Encounter HQ Susanr_solomon(FIN) [id number] Date(s): 04/16/15 - 04/16/15 [facility] Outpatient [address] [address]- [phone] Discharge Disposition: Home Attending Physician: Mary Cruz [...]
--- OUTSIDE RECORDS SUMMARY | 2018-09-07 14:50 | XMS REPORT | Summary of Care ---
:1955 Author Organization [facility] Outpatient Imaging [facility] Address [address] [place] [address]- Encounter HQ Susanr_solomon(FIN) [id number] Date(s): 02/09/16 - 02/09/16 [facility] Outpatient [address] [address] [phone] Discharge Disposition: Home or Self Care Attending Physician: Lobo Benites MD Vital Signs No data available for [...]
--- OUTSIDE RECORDS SUMMARY | 2018-09-07 14:50 | XMS REPORT | Summary of Care ---
:1955 Author Organization [facility] Outpatient Imaging [facility] Address [address] [place] [address]- Encounter HQ Susanr_solomon(FIN) [id number] Date(s): 04/15/15 - 04/15/[address] [facility] Outpatient [address] [address]- [phone] Discharge Disposition: Home Attending Physician: Physician, Non Associated MD Vital Signs No data available for [...]
[2018-09-07 16:02] VITALS: TEMP 98.3
[2018-09-07 16:03] VITALS: BP 157/86; O2SAT 96
== END 2018-09-07 15:11 | disposition home or self-care (01) ==
LOC: ER 12:33
DX: L03.116 Cellulitis of left lower limb (principal); S92.152A Displaced avulsion fracture (chip fracture) of left talus, initial encounter for closed fracture; V89.0XXA Person injured in unspecified motor-vehicle accident, nontraffic, initial encounter; Z85.3 Personal history of malignant neoplasm of breast; I10 Essential (primary) hypertension; F17.210 Nicotine dependence, cigarettes, uncomplicated
CPT/HCPCS: 99283